=== PATIENT | female | born 2000 ===

== ENCOUNTER 2025-01-31 15:03 | Outpatient (REF) | payer OTHER, SELFPAY ==
--- OUTSIDE RECORDS SUMMARY | 2025-01-31 09:00 | XMS_ITS | Encounter Summary ---
Author Organization [facility] Address [address] [facility] [place] [address] Care Team Providers Care 3Rd Grade Reading Teacher Name Role Phone Unavailable Primary Care Provider Unavailabl e Reason for Visit * Reason Comments Well Women Visit Encounter Details Date Type Department Care Team (Late st Contact Info) Description 01/31/2025 9:00 AM EDT Office Visit [facility] [address] [id number] Christiana Robertson PA [address] [place], [id number] Dysfunctional uterine bleeding (Primary Dx); Well woman exam with routine gynecological exam Social History Tobacco Use Types Packs/Day Years Used Date Smoking Tobacco: Never Assessed Comments Unknown Sex and Gender Information Value Date Recorded Sex Assigned at Not on file Legal Sex Female 12:01 PM EDT Gender Identity Not on file Sexual Orientation Not on file documented as of this encounter Last Filed Vital Signs Vital Sign Reading Time Taken Comments Blood Pressure 110/60 01/31/2025 9:09 AM EDT Pulse - - Temperature - - Respiratory Rate - - Oxygen Saturation - - Inhaled Oxygen Concentration - - Weight 68.2 kg (150 lb 6.4 oz) 01/31/2025 9:09 A M EDT Height 165.1 cm (5' 5 ) 01/31/2025 9:09 AM EDT Body Mass Index 25.03 01/31/2025 9:09 AM EDT documented in this encounter Progress Notes * Juany Finley NP - 01/31/2025 9:00 AM EDT Reason for Appointment: Patient ID: Kayla Macedo is a 24 y.o. female who presents for Well Women Visit Patient presents today for Annual Exam. MEDICATIONS No current outpatient medications ALLERGIES No Known Allergies PROBLEMS Active Ambulatory Problems Diagnosis Date Noted No Active Ambulatory Problems Resolved Ambulatory Problems Diagnosis Date Noted No Resolved Ambulatory Problems No Additional Past Medical History HISTORY PAST MEDICAL HISTORY SOCIAL HISTORY History reviewed. No pertinent past medical history. Social History Tobacco Use Smoking status: Not on file Smokeless tobacco: Not on file Substance Use Topics Alcohol use: Not on file Drug use: Not on file FAMILY HISTORY Family History Problem Relation Name Age of Onset Fibroids Mother Diabetes type II Father Skin cancer Maternal Grandmother Heart attack Paternal Grandfather SURGICAL HISTORY History reviewed. No pertinent surgical history. REVIEW OF SYSTEMS Review of Systems: Review of Systems Constitutional: Negative. HENT: Negative. Eyes: Negative. Respiratory: Negative. Cardiovascular: Negative. Gastrointestinal: Negative. Genitourinary: Positive for menstrual problem. Musculoskeletal: Negative. Skin: Negative. Neurological: Negative. All other systems reviewed and are negative. Hematological: Negative. Endocrine: Negative. Allergic/Immunologic: Negative. OBJECTIVE Objective: Physical Exam Constitutional: Appearance: Normal appearance. She is well-developed. Genitourinary: Vulva normal. Breasts: Breasts are soft. Right: Normal. Left: Normal. Cardiovascular: Rate and Rhythm: Normal rate and regular rhythm. Pulmonary: Effort: Pulmonary effort is normal. Breath sounds: Normal breath sounds. Abdominal: General: Bowel sounds are normal. There is no distension. Palpations: Abdomen is soft. Tenderness: There is no abdominal tenderness. There is no guarding or rebound. Musculoskeletal: General: No swelling. Normal range of motion. Right lower leg: No edema. Left lower leg: No edema. Neurological: Mental Status: She is alert and oriented to person, place, and time. Skin: General: Skin is warm and dry. Psychiatric: Mood and Affect: Mood normal. Behavior: Behavior normal. Vitals and nursing note reviewed. Exam conducted with a sub assembly team worker present. Vitals: Estimated body mass index is 25.03 kg/m?? as calculated from the following: Height as of this encounter: 5' 5 . Weight as of this encounter: 150 lb 6.4 oz. BP: 110/60 Patient's last menstrual period was 12/30/2024. ASSESSMENT & PLAN ICD-10-CM 1. Well woman exam with routine gynecological exam Z01.419 Pap Smear Annual Exam: Patient presents today for an annual exam. Patient states she is doing well and has no complaints. Pap was obtained without difficulty. No orders of the defined types were placed in this encounter. Follow Up: Patient reports dysfunctional uterine bleeding and is interested in OCP's or Nexplanon. Patient is to return in one year for annual unless needed otherwise. Documented by Juany Finley NP on behalf of: ELTON Carranza documented in this encounter Plan of Treatment Upcoming Encounters Date Type Department Care Team (Late st Contact Info) Description 02/05/2026 10:00 AM EDT Office Visit [facility] [address] [phone] Christiana Robertson PA [address] [facility] [place] [address] Scheduled Orders Name Type Priority Associated Diagnoses Orde r Schedule Pap Smear Pathology and Cytology Routine Well woman exam with routine gynecological exam Ordered: 01/31/2025 documented as of this encounter Visit Diagnoses Diagnosis Dysfunctional uterine bleeding- Primary Other disorder of menstruation and other abnormal bleeding from female genital tract Well woman exam with routine gynecological exam Routine gynecological examination documented in this encounter
--- OUTSIDE RECORDS SUMMARY | 2025-01-31 15:12 | XMS_ITS | Encounter Summary ---
Author Organization [facility] Address [address] [place] [address] Care Team Providers Care Leather Grader Name Role Phone Unavailable Primary Care Provider Unavailabl e Encounter Details Date Type Department Care Team (Late st Contact Info) Description 01/31/2025 Bamboo flowsheet [facility] [address] [facility] [facility] [place] [phone] Christiana Robertson, PA [address] [place] [address] [address] [place], [facility] Social History Tobacco Use Types Packs/Day Years Used Date Smoking Tobacco: Never Assessed Comments Unknown Sex and Gender Information Value Date Recorded Sex Assigned at Not on file Legal Sex Female 12:01 PM EDT Gender Identity Not on file Sexual Orientation Not on file documented as of this encounter Plan of Treatment Upcoming Encounters Date Type Department Care Team (Late st Contact Info) Description 02/05/2026 10:00 AM EDT Office Visit [facility] [address] [place] [phone] Christiana Robertson, PA [address] [place] [address] [place], [place] [id number] documented as of this encounter Visit Diagnoses Not on filedocumented in this encounter
--- OUTSIDE RECORDS SUMMARY | 2025-01-31 15:12 | XMS_ITS | Encounter Summary ---
Author Organization [facility] Address [address] [place] [address] Care Team Providers Care Wind Up Worker Name Role Phone Unavailable Primary Care Provider Unavailabl e Encounter Details Date Type Department Care Team (Latest Contact Info) Description 01/30/2025 Travel Social History Tobacco Use Types Packs/Day Years [...] EDT Office Visit [facility] [address] [facility] [address] Christiana Robertson PA [address] [facility] [place] [address] documented as of this encounter Visit Diagnoses Not on filedocumented in this encounter
--- OUTSIDE RECORDS SUMMARY | 2025-01-31 15:12 | XMS_ITS | Encounter Summary ---
Author Organization [facility] Address [address] [place] [address] Care Team Providers Care Automotive Lot Attendant Name Role Phone Unavailable Primary Care Provider Unavailabl e Encounter Details Date Type Department Care Team (Latest Contact Info) Description 01/28/2025 Travel Social History Tobacco Use Types Packs/Day [...] EDT Office Visit [facility] [address] [facility] [address] [address] Christiana Robertson PA [address] [place] [address] documented as of this encounter Visit Diagnoses Not on filedocumented in this encounter
--- OUTSIDE RECORDS SUMMARY | 2025-01-31 15:12 | XMS_ITS | Clinical Summary ---
Author Organization [facility] Address [id number] [address] [place] [address] Care Team Providers Care Neuropsychiatric Aide Name Role Phone Abel Gunderson MD Primary Care Provider [phone] Allergies No known active allergies Medications No known medications Social History Tobacco Use Types Packs/Day Years Used Date Smoking Tobacco: Never Smokeless Tobacco: Never Tobacco Cessation:Counseling Given: No Alcohol Use Standard Drinks/Week Comments Never 0 (1 standard drink = 0.6 oz pur e alcohol) PHQ-2 Answer Date Recorded Total Score 0 11/09/2022 Childcare Answer Date Recorded Childcare Unknown 01/03/2019 Employment Answer Date Recorded Employment Unknown 01/03/2019 Hunger Screening Answer Date Recorded Within the past 12 months we worried whether our food would run out before we got money to buy more. Never True 11/09/2022 Within the past 12 months th e food we bought just didn't last and we didn't have money to get more. Never True 11/09/2022 Comments Unknown Sex and Gender Information Value Date Recorded Sex Assigned at Not on file Legal Sex Female 5:00 PM EDT Gender Identity Not on file Sexual Orientation Not on file Last Filed Vital Signs Vital Sign Reading Time Taken Comments Blood Pressure 136/88 11/09/2022 3:21 PM EDT Pulse 118 11/09/2022 3:21 PM EDT Temperature - - Respiratory Rate - - Oxygen Saturation - - Inhaled Oxygen Concentration - - Weight 65.3 kg (144 lb) 11/09/2022 3:21 PM EDT Height 163.8 cm (5' 4.5 ) 11/09/2022 3:21 PM EDT Body Mass Index 24.34 11/09/2022 3:21 PM EDT Plan of Treatment Health Maintenance Due Date Last Done Comments Tobacco Screening 2014 Pap Smear 2023 Adult BMI Screening 11/10/2023 11/09/2022 Depression Screening 11/10/2023 11/09/2022 COVID-19 Vaccine (2023- 5 season) 2024 06/09/2022, 05/06/2021, 04/15/2021 Influenza Vaccine 03/26/2025 06/09/2022, 06/10/2009 DTaP,Tdap and Td Vaccines (7 - Td or Tdap) 05/14/2026 05/14/2016, 12/07/2006, 08/21/2003, Additional history exists Medical Devices Not on file Insurance [employer] Care Teams Neuropsychiatric Aide Relationship Specialty Start Date End Date Abel Gunderson MD [address] [place] [address], [address] [place] [phone] PCP - General Pediatrics 11/09/22
--- OUTSIDE RECORDS SUMMARY | 2025-01-31 15:12 | XMS_ITS | Clinical Summary ---
Author Organization [facility] Address [address] [facility] [place] [address] Care Team Providers Care Flat Surfacer Name Role Phone Unavailable Primary Care Provider Unavailabl e Allergies No known active allergies Medications desogestrel-ethiny l estradiol (Apri) 0.15-30 MG-MCG tabletIndications: Well woman exam with routine gynecological exam,Dysfunctional uterine bleeding Take 1 tablet by mouth Daily for 28 days Take 1 tablet by mouth daily 28 tablet 11 02/29/20 25 Active Encounters Date Type Department Care Team Description 01/31/2025 9:00 AM EDT Office Visit [facility] [address] [facility] [place] [place] [address] Christiana Robertson PA Dysfunctional uterine bleeding (Primary Dx); Well woman exam with routine gynecological exam 01/31/2025 Bamboo flowsheet [facility] [address] [place] [address] Christiana Robertson PA 01/30/2025 Travel 01/28/2025 Travel from Last 3 Months Family History Medical History Relation Name Comments Diabetes type II Father Skin cancer Maternal Grandmother Fibroids Mother Heart attack Paternal Grandfather Relation Name Status Comments Father Maternal Grandmother Mother Paternal Grandfather Social History Tobacco Use Types Packs/Day Years [...] Mass Index 25.03 01/31/2025 9:09 AM EDT Plan of Treatment Upcoming Encounters Date Type Department Care Team (Late st Contact Info) Description 02/05/2026 10:00 AM EDT Office Visit [facility] [address] [facility] [place] [phone] Christiana Robertson PA [address] [facility] [place] [address] Health Maintenance Due Date Last Done Comments Influenza Vaccine (#1) 2025 06/09/2022 Insurance [employer]
[2025-02-06 00:09] LABS: Age Gdln ACOG Testing Note (.); IGP, rfx Aptima HPV ASCU Note (.)
== END 2025-01-31 15:04 | disposition home or self-care (01) ==
LOC: LAB 15:03
PROVIDERS: Visit Provider Physician Assistant
DX: Z01.419 Encounter for gynecological examination (general) (routine) without abnormal findings (principal)
CPT/HCPCS: 88175